=== PATIENT | female | born 1950 | race Asian ===

== ENCOUNTER 2019-05-11 05:29 | Day surgery (SDC) | payer OTHER ==
[~2019-05-11] VITALS: Ht 152.4 cm; Wt 45.5 kg
[~2019-05-11 05:29] MED LIST: SODIUM CHLORIDE 0.9% 1,000 ML IV ONE
[2019-05-11] MEDS ORDERED: LIDOCAINE 2% 5 ML JELLY TP ONE (05:30)
[2019-05-11] MEDS ORDERED: LIDOCAINE 4% 50 ML SOLUTION TP ONE (05:30)
[2019-05-11] MEDS ORDERED: ALBUTEROL SULFATE 2.5 MG/0.5 ML NEB SOLUTION NEB ONE (05:30)
[2019-05-11] MEDS ORDERED: BENZOCAINE 20% 50 MCG/SPRAY 57 GM TP ONE (05:30)
[2019-05-11] MEDS ORDERED: SODIUM CHLORIDE 0.9% 1,000 ML IV ONE (06:30)
[2019-05-11] MEDS ORDERED: BUDE10.2 IH (07:25)
[2019-05-11] MEDS ORDERED: LINA290C PO (07:25)
[2019-05-11] MEDS ORDERED: CYAN250014 PO (07:25)
[2019-05-11] MEDS ORDERED: FOLI1 PO (07:25)
[2019-05-11] MEDS ORDERED: METO-296 PO (07:25)
[2019-05-11] MEDS ORDERED: COMBISP IH (07:25)
[2019-05-11] MEDS ORDERED: PROP20TA18 PO (07:25)
[2019-05-11] MEDS ORDERED: DILT30 PO (07:25)
[2019-05-11] MEDS ORDERED: CETI10TA59 PO (07:25)
[2019-05-11] MEDS ORDERED: OMEP20 PO (07:25)
[2019-05-11] MEDS ORDERED: PRED10 PO (07:25)
[2019-05-11] MEDS ORDERED: ALBU8.5H8 IH (07:25)
[2019-05-11] MEDS ORDERED: ESCI10TA PO (07:25)
[2019-05-11] MEDS ORDERED: MIRT15 PO (07:25)
[2019-05-11] MEDS ORDERED: FERR-89 PO (07:25)
[2019-05-11] MEDS ORDERED: MIDAZOLAM HCL 2 MG/2 ML VIAL ONE (07:54)
[2019-05-11] MEDS ORDERED: FentaNYL CITRATE-PF 100 MCG/2 ML VIAL ONE (07:54)
[2019-05-11] MEDS ORDERED: MethylPREDNISolone SOD SUCC 125 MG/2 ML VIAL IVP ONE (08:30)
[2019-05-11] MEDS ORDERED: MethylPREDNISolone SOD SUCC 125 MG/2 ML VIAL ONE (09:26)
[2019-05-11] MEDS ORDERED: OXYGEN THERAPY IH SCH (20:00)
== END 2019-05-11 11:00 | disposition home or self-care (01) ==
LOC: SURGERY 05:29
PROVIDERS: ATTEND Internal Medicine Critical Care Medicine
DX: J38.4 Edema of larynx (principal); B37.0 Candidal stomatitis; J44.9 Chronic obstructive pulmonary disease, unspecified; J98.8 Other specified respiratory disorders; Z79.899 Other long term (current) drug therapy; Z97.3 Presence of spectacles and contact lenses; Z98.890 Other specified postprocedural states
CPT/HCPCS: 31623; 31624; 71045; 87015; 87070; 87101; 87205; 87206; 87220; 88108; 88312; 93005; J2250; J2930; J3010; J7030